=== PATIENT | male | born 1975 | race Caucasian/White ===

== ENCOUNTER 2021-08-09 12:57 | Emergency (ER) | payer BC ==
--- NOTE | 2021-08-09 13:30 | EDM.PDOC ---
ED HPI GENERAL MEDICAL PROBLEM - General Chief Complaint: ENT Problem Stated Complaint: COVID +/SINUS PROBLEM Time Seen by Provider: 08/09/21 13:09 Source of Information: Reports: Patient, RN Notes Reviewed History Limitations: Reports: No Limitations - History of Present Illness INITIAL COMMENTS - FREE TEXT/NARRATIVE: Patient is a 46-year-old male who presents to the ER for his sinus issues. States that he has been having what he calls a sinus infection for the past 2 months he notes some left-sided facial discomfort/congestion. Has developed a few fevers from time to time with this, worse in the last week or so. He went to the walk-in clinic yesterday for the resultant fevers and to try to get some relief from the sinus congestion. They tested him for COVID-19 and sent him home. He did return positive for COVID-19. Notes he has been using NyQuil and DayQuil for his fevers and other symptoms. States he has been getting out dark green nasal drainage for the past 2 months as well. No change in taste or smell. Is not having any fevers at this time, no cough or shortness of breath or any sort of nausea/vomiting/diarrhea. - Related Data Allergies Allergy/AdvReac Type Severity Reaction Status Date / Time No Known Allergies Allergy Verified 08/09/21 13:10 Home Meds: Home Meds Amoxicillin/Clavulanate K [Augmentin 875-125 MG] 1 tab PO BID 10 Days #20 tablet 08/09/21 [Rx] Past Medical History - Past Health History Medical/Surgical History: Denies Medical/Surgical History - Infectious Disease History Infectious Disease History: Reports: Novel Coronavirus Social & Family History - Tobacco Use Tobacco Use Status *Q: Current Every Day Tobacco User Years of Tobacco use: 30 Packs/Tins Daily: 0.5 - Recreational Drug Use Recreational Drug Use: No ED ROS ENT - Review of Systems Review Of Systems: Comprehensive ROS is negative, except as noted in HPI. ED EXAM, ENT - Physical Exam Exam: See Below Exam Limited By: No Limitations General Appearance: Alert, WD/WN, No Apparent Distress Nose: Normal Inspection, Injected Turbinates (bilateral). No: Foreign Body Head: Sinus Tenderness (Left maxilla) Respiratory/Chest: No Respiratory Distress, Lungs Clear, Normal Breath Sounds, No Accessory Muscle Use, Chest Non-Tender Cardiovascular: Normal Peripheral Pulses, Regular Rate, Rhythm, No Edema GI/Abdominal: Normal Bowel Sounds, Soft, Non-Tender, No Distention, No Mass Extremities: Normal Inspection, Normal Capillary Refill Neurological: Alert, Oriented, Normal Cognition, No Motor/Sensory Deficits Psychiatric: Normal Affect, Normal Mood Skin: Warm, Dry, Intact, Normal Color, No Rash Course - Vital Signs Last Recorded V/S: Last Vital Signs Temp 97 F 08/09/21 13:08 Pulse 76 08/09/21 13:08 Resp 16 08/09/21 13:08 BP 108/74 08/09/21 13:08 Pulse Ox 100 08/09/21 13:08 - Re-Assessments/Exams Free Text/Narrative Re-Assessment/Exam: 08/09/21 13:29 Patient presents to the ER for evaluation of his left sided facial pain/sinus drainage. Since this has been going on for about [address] him on a course of Augmentin and have him follow-up with primary care for ongoing management. Patient verbalized understanding of this plan. Departure - Departure Time of Disposition: 13:30 Disposition: Home, Self-Care 01 Condition: Good Clinical Impression: Acute sinus infection Qualifiers: Sinusitis location: unspecified location Recurrence: non-recurrent Qualified Code(s): J01.90 - Acute sinusitis, unspecified - Discharge Information *PRESCRIPTION DRUG MONITORING PROGRAM REVIEWED*: No *COPY OF PRESCRIPTION DRUG MONITORING REPORT IN PATIENT ARNEL: No Prescriptions: Amoxicillin/Clavulanate K [Augmentin 875-125 MG] 1 tab PO BID 10 Days #20 tablet Instructions: Sinusitis, Adult, [id number] Referrals: PCP,None [Primary Care Provider] - Additional Instructions: You have been evaluated in the ED today for your ongoing sinus issues. Since this is been going on for 2 months, you have been placed on an antibiotic to help clear this up. Take 1 tablet 2 times a day until gone. This medication was electronically sent to the [facility] pharmacy located on [place]. This medication can cause some diarrhea so I recommend that you take a probiotic, or eat some yogurt while taking this medication to help provide normal GI maurice as antibiotics kill all the good and bad bacteria within her systems. Please increase your fluid intake. Get plenty of rest as well. You should feel better in a few days. As with any illness, please try to limit your exposure to others to help mitigate the spread of germs. Please also remember to wash your hands after you cough/sneeze. Please try to limit touching your face, and then touching other surfaces. Recommend that you take some [id number] nasal decongestants, cough/cold remedies to combat this. You may take 500mg Tylenol (acetaminophen) or 600mg Advil/Motrin (ibuprofen) every 6 hours as needed for further pain/fever relief. Do not exceed 4000 mg Tylenol or 3200 mg ibuprofen in a 24-hour time span. If you have high blood pressure, medications like Coricidin would be adequate to use. Since you also are Covid positive, please follow all other guidance provided by the [facility] in regards to quarantine/isolation. Typically you should be isolated for 10 days after symptoms start. If your symptoms are not better in one week's time recommend that you follow up in a clinic or your primary care provider. Our [facility] clinic number is [phone], the [place] clinic is [phone]. Any family practice provider would be able to provide you with the services. Please return to the ED if your symptoms change or worsen. Sepsis Event Note (ED) - Evaluation Sepsis Screening Result: No Definite Risk - Focused Exam Vital Signs: Vital Signs Temp Pulse Resp BP Pulse Ox 08/09/21 13:08 97 F 76 16 108/74 100
== END 2021-08-09 13:40 | disposition home or self-care (01) ==
LOC: JD.ED 12:57
DX: J01.90 Acute sinusitis, unspecified (principal)
CPT/HCPCS: 99283

== ENCOUNTER 2024-11-18 04:13 | Emergency (ER) | payer OTHER ==
[2024-11-18] MEDS: Albuterol/Ipratropium 3.0-0.5 MG/3 ML Neb Soln NEB ONE (05:23)
[2024-11-18] MEDS: predniSONE 20 MG Tab PO ONE (05:38)
[2024-11-18] MEDS: Ibuprofen 600 MG Tab PO ONE (06:35)
[2024-11-18] MEDS: Amoxicillin/Clavulanate K 875-125 MG Tab PO ONE (06:35)
== END 2024-11-18 06:42 | disposition home or self-care (01) ==
LOC: JD.ED 04:13
DX: J45.901 Unspecified asthma with (acute) exacerbation (principal); H66.001 Acute suppurative otitis media without spontaneous rupture of ear drum, right ear; Z86.16 Personal history of COVID-19; Z79.51 Long term (current) use of inhaled steroids; Z79.899 Other long term (current) drug therapy
CPT/HCPCS: 71046; 87428; 94640; 99285; A9270; J7512; J7620